=== PATIENT | female | born 1985 | race Caucasian/White ===

== ENCOUNTER → 2018-04-07 | Outpatient (REF) | payer BC | LOC: M LAB REF 12:29 | DX: E04.1 Nontoxic single thyroid nodule (principal) | CPT/HCPCS: 88173 ==

== ENCOUNTER → 2019-05-26 | Outpatient (REF) | payer BC ==
[2019-05-26 13:15] LABS: FREE T4 1.55 NG/DL (0.76-1.46); THYROID STIMULATING HORMONE 0.021 uIU/ML (0.358-3.740)
== END ==
LOC: M LABDRAW1 11:48
PROVIDERS: ATTEND Nurse Practitioner Family
DX: E89.0 Postprocedural hypothyroidism (principal)

== ENCOUNTER → 2019-09-24 | Outpatient (REF) | payer OTHER | LOC: M LAB LCGH 11:34 | DX: Z12.4 Encounter for screening for malignant neoplasm of cervix (principal) | CPT/HCPCS: 87624; G0123 ==

== ENCOUNTER → 2019-11-16 | Outpatient (REF) | payer OTHER | LOC: M LABDRAW1 09:24 | PROVIDERS: ATTEND Nurse Practitioner Family | DX: C73 Malignant neoplasm of thyroid gland (principal) ==

== ENCOUNTER → 2020-05-05 | Outpatient (REF) | payer OTHER ==
[2020-06-13 13:30] LABS: THRYOGLOBULIN ANTIBODIES (ATA) See Separate Report IU/ML
[2020-06-13 13:31] LABS: THYROGLOBULIN QUANTITATIVE SEE SEPARATE REPORT NG/ML
== END ==
LOC: M PLALAB 08:24
PROVIDERS: ATTEND Nurse Practitioner Family
DX: C73 Malignant neoplasm of thyroid gland (principal)

== ENCOUNTER → 2020-11-28 | Outpatient (CLI) | payer OTHER ==
[2020-11-28 14:34] LABS: FREE T4 1.35 NG/DL (0.76-1.46); THYROGLOBULIN ANTIBODY 17.6 U/ML (<60.0); THYROID STIMULATING HORMONE 0.958 uIU/ML (0.358-3.740)
[2020-11-29 12:10] LABS: THRYOGLOBULIN ANTIBODIES (ATA) < 1.0 IU/mL (0.0-0.9); THYROGLOBULIN QUANTITATIVE < 0.1 ng/mL (1.5-38.5)
== END ==
LOC: M PLALAB 09:12
PROVIDERS: ATTEND Nurse Practitioner Family
DX: C73 Malignant neoplasm of thyroid gland (principal)

== ENCOUNTER → 2021-04-05 | Outpatient (CLI) | payer OTHER ==
[~2021-04-05] MED LIST: LEVO50TA5 PO; LIDOCAINE 1% MDV 20ML VIAL As Ordered ONE
[2021-04-05 14:30] VITALS: BP 172/76
--- NOTE | 2021-04-05 15:56 | REP ---
INDICATION: LOCALIZED ENLARGED LYMPH NODES. COMPARISON: None. TECHNIQUE: The procedure was performed under the direct supervision of Dr. Smith. Patient has a history of right cervical lymphadenopathy with the largest lymph node measuring 1.9 x 1.3 x 0.7 cm seen on a previous ultrasound from [facility] performed on 03/27/2021. The risks and benefits of the procedure were explained to the patient and informed consent was obtained. The right cervical lymph node was localized using ultrasound guidance. The skin was prepped and draped in a sterile fashion. 4 mL of 1% lidocaine was used as a local anesthetic. Using ultrasound guidance 4 fine-needle aspirations were obtained using 25 gauge needles. Estimated blood loss: Less than 1 cc. The patient tolerated the procedure well and there were no immediate complications. After the appropriate amount to monitor convalescence the patient was discharged from the department. FINDINGS: None IMPRESSION: Ultrasound-guided right cervical lymph node biopsy. <Electronically signed by Asael Rodríguez > 04/05/21 [id number] <Electronically signed by Richar Smith > 04/05/21 0382
== END ==
LOC: M IRPRO 13:47
PROVIDERS: ATTEND Nurse Practitioner Family
DX: R59.0 Localized enlarged lymph nodes (principal)

== ENCOUNTER → 2023-11-21 | Outpatient (CLI) | payer BC ==
[~2023-11-21] MED LIST changes: -LIDOCAINE 1% MDV 20ML VIAL As Ordered ONE
== END ==
LOC: M RAD 11:25
PROVIDERS: ATTEND Nurse Practitioner Family
DX: R22.1 Localized swelling, mass and lump, neck (principal)